=== PATIENT | male | born 1970 | race Caucasian/White ===

== ENCOUNTER 2017-06-19 13:42 | Emergency (ER) | payer MEDICAID ==
[~2017-06-19] VITALS: Ht 185.4 cm; Wt 74.8 kg
[2017-06-19 14:00] VITALS: BP 178/117
--- NOTE | 2017-06-19 14:13 | Emergency Room Report ---
History of Present Illness General Chief Complaint: Medication Refill Source: Patient Present Illness HPI 47 YO Male presents to the ED c/o running out of his Adderall. 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 Pt. takes Adderall daily in addition to Robaxin. Patient states That he had change of insurance this month which is why he was unable to see his previously prescribing provider. Patient states that his previous provider does not take his new insurance. Patient reports he takes Adderall for poor attention span. 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 Denies CP, Palpitations, LOC, AMS, dizziness, Changes in Vision, Sensation, paresthesias, or a sudden severe headache. Allergies: Coded Allergies: SULFA (SULFONAMIDE ANTIBIOTICS) (Unverified Allergy, Unknown, 06/19/17) Patient History Past Medical History: see triage record Past Surgical History: none Reviewed Nursing Documentation: PSxH: Agreed Nursing Documentation-PMH Past Medical History: No History, Except For Hx Hypertension: Yes Review of Systems All Other Systems: negative except mentioned in HPI Physical Exam Vital Signs Date Time Temp Pulse Resp B/P (MAP) Pulse Ox O2 Delivery O2 Flow Rate FiO2 06/19/17 14:00 98.5 71 16 178/117 98 Room Air 98.4 Sp02 EP Interpretation: reviewed, normal General Appearance: no apparent distress, alert, GCS 15, non-toxic Head: normocephalic, atraumatic ENT: hearing grossly normal, normal voice Neck: full range of motion Respiratory: lungs clear, normal breath sounds, speaking full sentences Cardiovascular #1: regular rate, rhythm Musculoskeletal: back normal, gait/station normal, normal range of motion Neurologic: alert, oriented x3, responsive, motor strength/tone normal, sensory intact, speech normal, grossly normal Psychiatric: judgement/insight normal Skin: normal color, warm/dry, well hydrated Medical Decision Making PA Attestation Dr. Garcia is my supervising Physician whom patient management has been discussed with. Diagnostic Impression: Primary Impression: Encounter for medication refill ER Course 47 YO Male presents to the ED c/o running out of his Adderall. 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 Pt. takes Adderall daily in addition to Robaxin. Patient states That he had change of insurance this month which is why he was unable to see his previously prescribing provider. Patient states that his previous provider does not take his new insurance. Patient reports he takes Adderall for poor attention span. 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 Denies CP, Palpitations, LOC, AMS, dizziness, Changes in Vision, Sensation, paresthesias, or a sudden severe headache. Ddx considered but are not limited to: drug seeking, OD, non-compliance, MSK injury, ADD Vital signs: are WNL, pt. is afebrile H&PE are most consistent with need for medication refill. ORDERS: none required at this time, the diagnosis is clinical ED INTERVENTIONS: None required at this time. I discussed with this patient that one of the medications he is requesting is not appropriate to be prescribed from the emergency department and therefore will not be refilled. Discussed with this patient that I will give him a list of free or reduced cost clinics that he may follow up at the provide primary care where he can safely be prescribed these medications and properly managed. DISCHARGE: At this time pt. is stable for d/c to home. Will provide printed patient care instructions, and any necessary prescriptions. Care plan and follow up instructions have been discussed with the patient prior to discharge. Last Vital Signs Date Time Temp Pulse Resp B/P (MAP) Pulse Ox O2 Delivery O2 Flow Rate FiO2 06/19/17 14:00 98.5 71 16 178/117 98 Room Air 98.4 Disposition: HOME, SELF-CARE Condition: Stable Scripts Methocarbamol* (ROBAXIN*) 500 Mg Tablet 500 MG PO TID, #21 TAB 0 Refills Prov: Gissel Mims 06/19/17 Patient Instructions: Medicine Refill at the Emergency Department Additional Instructions: Take any previously prescribed medications as directed. Follow up with a Primary Care Provider in 3-5 days, For medication management. --Please review list of primary care clinics, if you do not already have a primary care provider Return sooner to ED if new symptoms occur, or current symptoms become worse. - Please note that this Emergency Department Report was dictated using [employer] software, occasionally this can lead to erroneous entry secondary to interpretation by the dictation equipment. Gissel Mims Jun 19, 2017 14:13
[2017-06-19] MEDS ORDERED: POTASSIUM GLUCO99 MG PO (14:23)
[2017-06-19] MEDS ORDERED: EXCEDRIN MIGRA1 EAC1 PO (14:23)
[2017-06-19] MEDS ORDERED: OMEGA 3 1,0001 EACH PO (14:23)
[2017-06-19] MEDS ORDERED: ADDERALL 30 MG30 MG ORAL (14:23)
[2017-06-19] MEDS ORDERED: ADDERALL XR 3030 MG ORAL (14:23)
[2017-06-19] MEDS ORDERED: ROBAXIN500 MG PO ×2 (14:23→14:25)
[2017-06-19] MEDS ORDERED: NORCO 5-325 TA1 EACH ORAL (14:23)
[2017-06-19] MEDS ORDERED: FLONASE1 SPRAYS NASAL (14:23)
[2017-06-19] MEDS ORDERED: CHROMIUM400 MCG PO (14:23)
[2017-06-19 14:34] VITALS: BP 169/99
== END 2017-06-19 14:34 | disposition home or self-care (01) ==
LOC: EMR 14:23
DX: Z76.0 Encounter for issue of repeat prescription (principal); I10 Essential (primary) hypertension; Z88.2 Allergy status to sulfonamides
CPT/HCPCS: 99283